=== PATIENT | female | born 1960 | race Caucasian/White ===

== ENCOUNTER 2017-04-15 14:54 | Emergency (ER) | payer SELFPAY ==
[2017-04-15 15:17] VITALS: BP 119/78; TEMP 98.5; O2SAT 94
[2017-04-15] MEDS ORDERED: predniSONE 20 MG TAB PO ONE (15:58)
[2017-04-15] MEDS ORDERED: cefTRIAXone SODIUM 1 GM VIAL IM ONE (16:45)
--- NOTE | 2017-04-15 16:50 | ED.PDOC ---
History of Present Illness - General Chief Complaint: ENT Problem Stated Complaint: cough, sorethroat, burning with urination Time Seen by Provider: 04/15/17 15:55 Source: patient Exam Limitations: no limitations - History of Present Illness Initial Comments: The patient is a 56-year-old female presenting to the emergency room secondary to symptoms of cough congestion and laryngitis for the past for 5 days. Additionally she has been having urinary tract symptoms for the last week or 2. She does have a history of frequent urinary tract infections in the past. She has had some low-grade fevers at home. No new back pain. No nausea or vomiting. No uncontrolled headaches. No altered mental status. No shortness of breath. She has had a cough. Timing/Duration: 1 week Severity: mild Improving Factors: nothing Worsening Factors: nothing Associated Symptoms: denies symptoms Allergies/Adverse Reactions: Allergies Codeine Allergy (Verified 04/15/17 15:17) Penicillins Allergy (Verified 04/15/17 15:17) Tetanus Toxoids Allergy (Verified 04/15/17 15:17) Home Medications: Ambulatory Orders Cephalexin Monohydrate [Keflex] 500 mg PO Q8H #21 cap 04/15/17 Hydroxyzine HCl 25 mg PO PRN 04/15/17 busPIRone HCL [Buspar] 15 mg PO BID 04/15/17 Review of Systems - Review of Systems Constitutional: States: malaise EENTM: States: nose congestion, throat pain Respiratory: States: cough Cardiology: States: no symptoms reported Gastrointestinal/Abdominal: States: no symptoms reported Genitourinary: States: dysuria, frequency, pain Musculoskeletal: States: no symptoms reported Skin: States: no symptoms reported Neurological: States: no symptoms reported Endocrine: States: no symptoms reported All other Systems: No Change from Baseline Past Medical History (General) - Patient Medical History Hx of COPD: No Hx Cardiac Disorders: No Hx Congestive Heart Failure: No Hx Hypertension: No Hx Diabetes: No Surgical History: Hysterectomy - Vaccination History Hx Tetanus, Diphtheria Vaccination: No - Allergic Hx Influenza Vaccination: No Hx Pneumococcal Vaccination: No - Social History Hx Tobacco Use: No Hx Alcohol Use: No - Female History Patient is a Female of Child Bearing Age (10 -59 yrs old): No Patient : No Family Medical History - Family History Mother Family History: Unknown Living Status: Unknown Physical Exam - Physical Exam General Appearance: Alert, Comfortable, No apparent distress Eye Exam: bilateral normal Ears, Nose, Throat: hearing grossly normal, nasal congestion, pharyngeal erythema Neck: full range of motion, supple Respiratory: lungs clear, normal breath sounds, no respiratory distress, no accessory muscle use Cardiovascular/Chest: normal peripheral pulses, regular rate, rhythm, no edema Peripheral Pulses: radial,right: 2+, radial,left: 2+, dorsalis pedis,right: 2+, dorsalis pedis,left: 2+ Gastrointestinal/Abdominal: non tender, soft Rectal Exam: deferred Back Exam: normal inspection, no CVA tenderness, no vertebral tenderness Extremity: normal range of motion, non-tender, normal inspection, no pedal edema , normal capillary refill 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 The patient did receive a dose of oral prednisone here for the laryngitis. She is going to be placed on a broad-spectrum antibiotic of Keflex for approximately 7 days. She needs a test of cure on her urine in about 10 days. She needs to return to the emergency room for any significant worsening. She needs to stop smoking obviously. ER warnings were given. no flu swab was done due to lack of availability. Minimal pulmonary symptoms were present so no empiric Tamiflu treatment was given. - Results/Orders Results/Orders: 04/15/17 16:05 URINE CULTURE W/COLONY COUNT Stat Laboratory Results - last 24 hr 04/15/17 16:05 Urine Color Yellow Urine Appearance Cloudy Urine pH 5.5 Ur Specific [place] 1.020 Urine Protein 30 Urine Glucose (UA) Negative Urine Ketones Negative Urine Blood Small H Urine Nitrite Positive H Urine Bilirubin Negative Urine Urobilinogen 0.2 Ur Leukocyte Esterase Large H Urine RBC Obscured by wbc's H Urine WBC Tntc H Ur Epithelial Cells Obscured by wbc's Amorphous Sediment 4+ Urine Bacteria 4+ H Departure - Departure Clinical Impression: Cystitis Upper respiratory tract infection Qualifiers: URI type: acute laryngitis Qualified Code(s): J04.0 - Acute laryngitis Disposition: Discharge to Home or Self Care Condition: Fair Departure Forms: ED Discharge - Pt. Copy, Patient Portal Self Enrollment Instructions: DI for Acute Cystitis, DI for Laryngitis Diet: regular diet Activity: increase activity as tolerated Referrals: MUSTAPHA JOSHUA [Primary Care Provider] - 1-2 Weeks Prescriptions: Cephalexin Monohydrate [Keflex] 500 mg PO Q8H #21 cap Home Medications: Ambulatory Orders Cephalexin Monohydrate [Keflex] 500 mg PO Q8H #21 cap 04/15/17 Hydroxyzine HCl 25 mg PO PRN 04/15/17 busPIRone HCL [Buspar] 15 mg PO BID 04/15/17 Additional Instructions: the patient is a 56-year-old female presenting with cystitis and upper respiratory tract infection including laryngitis. The patient did receive a dose of oral prednisone here for the laryngitis. She is going to be placed on a broad-spectrum antibiotic of Keflex for approximately 7 days. She needs a test of cure on her urine in about 10 days. She needs to return to the emergency room for any significant worsening. She needs to stop smoking obviously. ER warnings were given. no flu swab was done due to lack of availability. Minimal pulmonary symptoms were present so no empiric Tamiflu treatment was given.
[2017-04-15] MEDS ORDERED: LIDOCAINE 1% 10 ML VIAL INJ ONE (16:51)
== END 2017-04-15 17:15 | disposition home or self-care (01) ==
LOC: ER 14:54
DX: N30.90 Cystitis, unspecified without hematuria (principal); J04.0 Acute laryngitis; F17.200 Nicotine dependence, unspecified, uncomplicated
CPT/HCPCS: 81001; 87086; J0696; J7512

== ENCOUNTER → 2019-05-18 | Outpatient (CLI) | payer OTHER ==
--- NOTE | 2019-05-19 18:31 | MAM ---
EXAM DESCRIPTION: 3D Screening BILATERAL : Digital Mammography. CLINICAL HISTORY: 59 years Female ANNUAL SCREENING . No complaints. No personal or family history of breast cancer. Menarche age 16. Childbirth age 20. Menopause age 29. No HRT.. Lifetime risk of developing breast cancer (Tyrer-Cuzick model)(%): 6.3. COMPARISON: Baseline study at this facility.. No prior reports available. TECHNIQUE: Bilateral CC and MLO projection full-field images, digital tomosynthesis mammographic technique. Bilateral digital 2-D full-field MLO images. and CC images. CAD available for 2-D images. FINDINGS: The breast parenchymal density pattern is: Scattered areas of fibroglandular density No skin thickening or nipple retraction. Solitary microcalcifications. No new focal, stellate mass or density, focal asymmetry , and no suspicious microcalcifications bilaterally. IMPRESSION: Benign exam. BIRAD CATEGORY: 2 BENIGN FINDINGS. RECOMMENDATIONS: FOLLOW UP: Routine digital bilateral mammographic screening, one year interval from May 2019. Written communication explaining the IMPRESSION and follow-up, will be mailed to the patient and referring health care provider. According to the [employer], yearly mammograms are recommended starting at age 40 and continuing as long as a woman is in good health. Any breast change noted on a breast self-exam should be reported promptly to the patient's healthcare provider. Breast MRI is recommended for women with an approximately 20-25% or greater lifetime risk of breast cancer, including women with a strong family history of breast or ovarian cancer and women who have been treated for Hodgkin's disease. A negative mammographic report should not delay tissue diagnosis in patients with significant clinical history or physical findings. Extremely dense breast tissue limits the sensitivity of digital mammography. Electronically signed by: Afshin Delgado MD 05/19/2019 6:29 PM CDT
== END ==
DX: Z12.31 Encounter for screening mammogram for malignant neoplasm of breast (principal)

== ENCOUNTER 2019-12-14 07:50 | Emergency (ER) | payer SELFPAY ==
--- NOTE | 2019-12-14 08:04 | ED.PDOC ---
History of Present Illness - General Chief Complaint: Fever Stated Complaint: Fever, SOB, body aches Time Seen by Provider: 12/14/19 07:54 Source: patient, family Exam Limitations: no limitations Additional Information: Pt reports body aches, fever and mild SOB since last (6 days ago). Pt says mild PETTY, no CP, no sore throat. Pt reports mild N/V/D and mild abd cramping. She denies urinary symptoms. She is not aware of COVID exposure but her says he had "a bug" right before she got sick and thinks she may have picked it from him. - History of Present Illness Comments: Past 6 days Cough Quality/Degree: no cough Allergies/Adverse Reactions: Allergies Codeine Allergy (Verified 12/14/19 08:12) Penicillins Allergy (Verified 12/14/19 08:12) Tetanus Toxoids Allergy (Verified 12/14/19 08:12) Home Medications: Ambulatory Orders Cephalexin Monohydrate [Keflex] 500 mg PO Q8H #21 cap 04/15/17 Hydroxyzine HCl 25 mg PO PRN 04/15/17 busPIRone HCL [Buspar] 15 mg PO BID 04/15/17 Cyclobenzaprine HCl [Flexeril] 5 mg PO TID PRN #30 tab 10/09/17 predniSONE [Prednisone] 20 mg PO DAILY #7 tab 10/09/17 Cephalexin Monohydrate [Keflex] 500 mg PO QID #10 cap 12/14/19 Naproxen 250 mg PO BID #10 tab 12/14/19 Promethazine Tab [Phenergan Tablet] 25 mg PO .Q4H #10 tab 12/14/19 Review of Systems - Review of Systems Constitutional: States: chills, fever, weakness EENTM: Denies: ear pain, ear discharge, nose pain, nose congestion, throat pain, throat swelling Respiratory: States: short of breath. Denies: cough Cardiology: Denies: chest pain, edema, palpitations, syncope Gastrointestinal/Abdominal: States: abdominal pain - mild cramps, lower Genitourinary: Denies: dysuria, frequency, hematuria, pain Musculoskeletal: States: back pain, muscle pain Skin: States: no symptoms reported Neurological: States: headache - mild Endocrine: States: no symptoms reported Hematologic/Lymphatic: States: no symptoms reported Past Medical History (General) - Patient Medical History Hx of COPD: No Hx Cardiac Disorders: No Hx Congestive Heart Failure: No Hx Hypertension: No Hx Diabetes: No - Vaccination History Hx Tetanus, Diphtheria Vaccination: No - Allergic Hx Influenza Vaccination: No Hx Pneumococcal Vaccination: No - Social History Hx Tobacco Use: No Hx Alcohol Use: No - Female History Patient : No Family Medical History - Family History Mother Family History: Unknown Living Status: Unknown Physical Exam - Physical Exam General Appearance: Alert, No apparent distress, Obese, Well Groomed ENT Exam: normal ENT inspection Neck: full range of motion Respiratory: chest non-tender, lungs clear, normal breath sounds, no respiratory distress, no accessory muscle use, respiratory distress Cardiovascular/Chest: no edema, no gallop, no JVD, no murmur, tachycardia Gastrointestinal/Abdominal: normal bowel sounds, soft, no organomegaly, no pulsatile mass, tenderness - minimal suprapubic Extremity: normal range of motion, non-tender, normal inspection, no pedal edema Neurologic: alert, normal mood/affect, oriented x 3 Skin Exam: normal color, warm/dry Progress - Progress Progress: 12/14/19 09:26 12/14/19 08:50 URINE CULTURE W/COLONY COUNT Stat 12/14/19 09:05 [id number] SODIUM [Rocephin] 1 gm Sodium Chl 0.9% 50Ml Min-Bag+ [NS 50ml MINI-BAG+] 50 ml IVPB ONCE Laboratory Results WBC 9.6 K/mm3 (4.8-10.8) 12/14/19 08:20 RBC 4.11 M/mm3 (4.20-5.40) L 12/14/19 08:20 Hgb 12.6 gm/dL (12.0-16.0) 12/14/19 08:20 Hct 36.5 % (36.0-47.0) 12/14/19 08:20 MCV 88.8 fl (81.0-99.0) 12/14/19 08:20 MCH 30.6 pg (27.0-31.0) 12/14/19 08:20 MCHC 34.5 g/dL (33.0-37.0) 12/14/19 08:20 RDW 14.8 % (11.5-14.5) H 12/14/19 08:20 Plt Count 367 K/mm3 (130-400) 12/14/19 08:20 MPV 7.7 fl (7.40-10.4) 12/14/19 08:20 Absolute Neuts (auto) 7.10 K/uL (1.8-6.8) H 12/14/19 08:20 Absolute Lymphs (auto) 1.40 K/uL (1.0-3.4) 12/14/19 08:20 Absolute Monos (auto) 0.90 K/uL (0.2-0.8) H 12/14/19 08:20 Absolute Eos (auto) 0.00 K/uL (0.0-0.4) 12/14/19 08:20 Absolute Basos (auto) 0.10 K/uL (0.0-0.1) 12/14/19 08:20 Neutrophils % 74.6 % (42.0-78.0) 12/14/19 08:20 Lymphocytes % 14.9 % (20.0-50.0) L 12/14/19 08:20 Monocytes % 9.3 % (2.0-9.0) H 12/14/19 08:20 Eosinophils % 0.5 % (1.0-5.0) L 12/14/19 08:20 Basophils % 0.7 % (0.0-2.0) 12/14/19 08:20 Sodium 137 mmol/L (135-145) 12/14/19 08:20 Potassium 4.0 mmol/L (3.6-5.0) 12/14/19 08:20 Chloride 103 mmol/L (101-111) 12/14/19 08:20 Carbon Dioxide 21 mmol/L (21-31) 12/14/19 08:20 Anion Gap 17.0 (12-18) 12/14/19 08:20 BUN 12 mg/dL (7-18) 12/14/19 08:20 Creatinine 1.08 mg/dL (0.6-1.3) 12/14/19 08:20 BUN/Creatinine Ratio 11.1 (10-20) 12/14/19 08:20 Random Glucose 147 mg/dL (70-105) H 12/14/19 08:20 Serum Osmolality 276.3 mOsm/L (275-295) 12/14/19 08:20 Lactic Acid 1.0 mmol/L (0.5-2.2) 12/14/19 08:20 Calcium 9.1 mg/dL (8.4-10.2) 12/14/19 08:20 Total Bilirubin 0.8 mg/dL (0.2-1.0) 12/14/19 08:20 AST 20 IU/L (10-42) 12/14/19 08:20 ALT 27 IU/L (10-60) 12/14/19 08:20 Alkaline Phosphatase 110 IU/L (42-121) 12/14/19 08:20 Serum Total Protein 9.4 gm/dL (6.4-8.2) H 12/14/19 08:20 Albumin 3.5 g/dl (3.2-5.5) 12/14/19 08:20 Globulin 5.9 gm/dL (2.3-3.5) H 12/14/19 08:20 Albumin/Globulin Ratio 0.6 (1.1-1.9) L 12/14/19 08:20 Urine Color Yellow (Yellow) 12/14/19 08:50 Urine Appearance Sl cloudy (Clear) 12/14/19 08:50 Urine pH 6.0 (4.5-7.8) 12/14/19 08:50 Ur Specific [place] 1.010 (1.005-1.030) 12/14/19 08:50 Urine Protein 30 mg/dL 12/14/19 08:50 Urine Glucose (UA) Negative mg/dL (Negative) 12/14/19 08:50 Urine Ketones Negative mg/dL (NEGATIVE) 12/14/19 08:50 Urine Blood Small (Negative) H 12/14/19 08:50 Urine Nitrite Positive H 12/14/19 08:50 Urine Bilirubin Negative (NEGATIVE) 12/14/19 08:50 Urine Urobilinogen 0.2 mg/dL (0.2-1.0) 12/14/19 08:50 Ur Leukocyte Esterase Moderate (Negative) H 12/14/19 08:50 Urine RBC 0-1 /hpf 12/14/19 08:50 Urine WBC >100 /hpf H 12/14/19 08:50 Ur Epithelial Cells 0-1 /hpf 12/14/19 08:50 Urine Bacteria 2+ H 12/14/19 08:50 Rapid COVID negative EXAM DESCRIPTION: Chest,1 View CLINICAL HISTORY: SOB COMPARISON: None. IMPRESSION: Single AP portable upright view of the chest shows cardiac silhouette and pulmonary vasculature to be within normal limits. Lungs are normally aerated and clear. No obvious pleural effusion or pneumothorax is seen. Electronically signed by: Ahmet Schwartz MD 12/14/2019 8:21 AM CDT 12/14/19 09:39 Pt feels much better. No vomiting or diarrhea in ER. Pulse now 88-100, SBP nl. Pt does not feel like she needs any more IVF's. Pt requests a little more for aching and nausea. Will order Toradol and Zofran. Pt has no concerns about being d/c home. Departure - Departure Clinical Impression: Pyelonephritis, Dehydration, Myalgia, Nausea vomiting and diarrhea Disposition: Discharge to Home or Self Care Departure Forms: ED Discharge - Pt. Copy, Patient Portal Self Enrollment Diet: full liquid diet Activity: increase activity as tolerated Referrals: MUSTAPHA JOSHUA [Primary Care Provider] - 1-2 Weeks Prescriptions: Cephalexin Monohydrate [Keflex] 500 mg PO QID #10 cap Naproxen 250 mg PO BID #10 tab Promethazine Tab [Phenergan Tablet] 25 mg PO .Q4H #10 tab Home Medications: Ambulatory Orders Cephalexin Monohydrate [Keflex] 500 mg PO Q8H #21 cap 04/15/17 Hydroxyzine HCl 25 mg PO PRN 04/15/17 busPIRone HCL [Buspar] 15 mg PO BID 04/15/17 Cyclobenzaprine HCl [Flexeril] 5 mg PO TID PRN #30 tab 10/09/17 predniSONE [Prednisone] 20 mg PO DAILY #7 tab 10/09/17 Cephalexin Monohydrate [Keflex] 500 mg PO QID #10 cap 12/14/19 Naproxen 250 mg PO BID #10 tab 12/14/19 Promethazine Tab [Phenergan Tablet] 25 mg PO .Q4H #10 tab 12/14/19
[2019-12-14] MEDS ORDERED: SODIUM CHLORIDE 0.9% 1000ML 1,000 ML IVS ONE (08:05)
[2019-12-14] MEDS ORDERED: MORPHINE SULFATE INJ 10 MG/ML VIAL IV ONE (08:05)
[2019-12-14] MEDS ORDERED: ONDANSETRON INJ 4 MG/2 ML VIAL IV ONE ×2 (08:05→09:38)
--- NOTE | 2019-12-14 08:23 | RAD ---
EXAM DESCRIPTION: Chest,1 View CLINICAL HISTORY: SOB COMPARISON: None. IMPRESSION: Single AP portable upright view of the chest shows cardiac silhouette and pulmonary vasculature to be within normal limits. Lungs are normally aerated and clear. No obvious pleural effusion or pneumothorax is seen. Electronically signed by: Ahmet Schwartz MD 12/14/2019 8:21 AM CDT
[2019-12-14] MEDS ORDERED: cefTRIAXone SODIUM 1 GM in SODIUM CHL 0.9% 50ML MIN-BAG+ 50 ML IVPB ONE (09:05)
[2019-12-14] MEDS ORDERED: KETOROLAC TROMETHAMINE INJ 30 MG/ML VIAL IV ONE (09:38)
[2019-12-14 10:04] VITALS: BP 110/79; TEMP 97.1; O2SAT 93
== END 2019-12-14 09:50 | disposition home or self-care (01) ==
LOC: ER 07:50
DX: N12 Tubulo-interstitial nephritis, not specified as acute or chronic (principal); E86.0 Dehydration; R11.2 Nausea with vomiting, unspecified; R19.7 Diarrhea, unspecified; M79.10 Myalgia, unspecified site; R51.9 Headache, unspecified; R06.02 Shortness of breath; Z79.899 Other long term (current) drug therapy; Z88.5 Allergy status to narcotic agent; Z88.0 Allergy status to penicillin; Z88.7 Allergy status to serum and vaccine; Z20.828 Contact with and (suspected) exposure to other viral communicable diseases
CPT/HCPCS: 36415; 71045; 80053; 81001; 83605; 85025; 87086; 87635; J0696; J1885; J2270; J2405; J7030; J7050